=== PATIENT | female | born 1955 | race Two or more races ===

== ENCOUNTER 2017-10-12 07:36 | Outpatient (CLI) | payer OTHER ==
[~2017-10-12 07:36] MED LIST: FOSAMAX35 MG; KETO10TA2 PO; ORPH100T PO; PREDNISONE10 MG PO; SYNTHROID50 MCG; SYNTHROID88 MCG PO; TORADOL60 MG IM
== END 2017-10-12 07:46 | disposition home or self-care (01) ==
LOC: MAMO-SONO 07:36
DX: Z12.31 Encounter for screening mammogram for malignant neoplasm of breast (principal); N60.11 Diffuse cystic mastopathy of right breast; N60.12 Diffuse cystic mastopathy of left breast

== ENCOUNTER 2017-12-14 07:22 | Outpatient (CLI) | payer OTHER | END 2017-12-14 07:32 | disposition home or self-care (01) | LOC: SONOGRAMA 07:22 | DX: R10.11 Right upper quadrant pain (principal); K75.4 Autoimmune hepatitis ==

== ENCOUNTER 2017-12-24 11:10 | Outpatient (CLI) | payer OTHER | END 2017-12-24 17:00 | disposition home or self-care (01) | LOC: RAD 11:10 | DX: M54.5 Low back pain (principal) ==

== ENCOUNTER → 2017-12-24 12:13 | Outpatient (CLI) | payer OTHER | END | disposition home or self-care (01) | LOC: LAB 12:13 | DX: N28.1 Cyst of kidney, acquired (principal); Z51.81 Encounter for therapeutic drug level monitoring ==

== ENCOUNTER 2018-01-04 07:30 | Outpatient (CLI) | payer OTHER | END 2018-01-04 07:44 | disposition home or self-care (01) | LOC: TOM 07:30 | DX: N28.1 Cyst of kidney, acquired (principal) ==

== ENCOUNTER 2019-05-04 09:26 | Outpatient (CLI) | payer OTHER | END 2019-05-04 09:40 | disposition home or self-care (01) | LOC: LAB 09:26 | DX: N18.2 Chronic kidney disease, stage 2 (mild) (principal) ==

== ENCOUNTER 2019-05-04 10:14 | Outpatient (CLI) | payer OTHER | END 2019-05-04 10:34 | disposition home or self-care (01) | LOC: SONOGRAMA 10:14 | DX: K75.4 Autoimmune hepatitis (principal) ==

== ENCOUNTER → 2019-09-12 12:06 | Outpatient (CLI) | payer OTHER ==
[~2019-09-12 12:06] MED LIST changes: +OSEL75CA PO
== END | disposition home or self-care (01) ==
LOC: LAB 12:06
DX: J11.1 Influenza due to unidentified influenza virus with other respiratory manifestations (principal); K75.4 Autoimmune hepatitis

== ENCOUNTER 2019-09-12 14:22 | Emergency (ER) | payer OTHER ==
[~2019-09-12] VITALS: Ht 167.6 cm; Wt 94.8 kg
[~2019-09-12 14:22] MED LIST changes: -OSEL75CA PO
[2019-09-12] MEDS ORDERED: OSEL75CA PO (17:08)
== END 2019-09-12 17:16 | disposition home or self-care (01) ==
LOC: ER 14:22
DX: J09.X2 Influenza due to identified novel influenza A virus with other respiratory manifestations (principal)

== ENCOUNTER 2022-11-03 10:17 | Outpatient (CLI) | payer OTHER ==
[~2022-11-03 10:17] MED LIST changes: +OSEL75CA PO
== END 2022-11-03 10:23 | disposition home or self-care (01) ==
LOC: RAD 10:17
PROVIDERS: ATTEND Physical Medicine & Rehabilitation
DX: M25.561 Pain in right knee (principal)